=== PATIENT | male | born 1950 | race Caucasian/White ===

== ENCOUNTER 2018-05-13 12:25 | Emergency (ER) | payer MEDICAID ==
[~2018-05-13] VITALS: Ht 167.6 cm; Wt 70.5 kg
[~2018-05-13 12:25] MED LIST: TRAM50TA2 PO
[2018-05-13 12:31] VITALS: BP 137/91; PULSE 108; RESP 18; Ht 167.6 cm; Wt 70.5 kg
[2018-05-13] MEDS ORDERED: KETOROLAC 60 MG INJ IM STA (14:18)
[2018-05-13] MEDS ORDERED: HYDROCODONE/APAP (5/325) TAB PO ONE (14:30)
--- NOTE | 2018-05-13 14:41 | ERD ---
ER Documentation Chief Complaint Chief Complaint new onset left back/hip/knee x 3 days HPI This is a 68-year-old male with a history of chronic low back pain who presents ED with complaints of left knee pain times 4 days. Patient is also complaining of flareup of chronic low back pain. Patient states that he suffered a Workmen's Comp. injury many years ago and that is the cause of his low back pain. Patient denies any recent fall or injury. Admits to some painful range of motion. Admits to left knee pain aggravated with walking and bending. Denies fever, chills, tingling, numbness, sensation, decreased range of motion, history of IV drug abuse, saddle paresthesias, bowel/bladder incontinence. ROS All systems reviewed and are negative except as per history of present illness. Medications Home Meds Active Scripts Tramadol HCl (Tramadol HCl) 50 Mg Tablet, 50 MG PO Q4 PRN for PAIN, #20 TAB Prov:ELAYNE HANLEYLayo 06/28/15 Allergies Allergies: Coded Allergies: No Known Allergy (Unverified , 06/27/15) PMhx/Soc History of Surgery: Yes (surgery to left upper arm) Anesthesia Reaction: No Hx Neurological Disorder: No Hx Respiratory Disorders: No Hx Cardiac Disorders: No Hx Psychiatric Problems: No Hx Miscellaneous Medical Probl: No Hx Alcohol Use: No Hx Substance Use: Yes (MARIJUANA) Hx Tobacco Use: No Smoking Status: Current every day smoker FmHx Family History: No diabetes Physical Exam Vitals Vital Signs Date Temp Pulse Resp B/P (MAP) Pulse Ox O2 O2 Flow FiO2 Time Delivery Rate 05/13/18 98.9 108 18 137/91 98 12:31 (106) Physical Exam Physical Exam Vitals signs: Reviewed by me. General: Well developed, well nourished, in no acute distress. Patient is awake and alert. Head: Normocephalic, atraumatic. Eyes: Normal conjunctiva, Pupils PERRLA, EOM intact grossly ENT: Pharynx is clear, Moist mucous membranes, external ears, nose and mouth normal Neck: Supple, no masses, lymphadenopathy or JVD Respiratory: Clear to auscultation bilaterally with no wheezing, rhonchi, rales, no distress Cardiovascular: RRR, no murmurs, rubs, or gallops MSK: Deformity of right hand, no edema, no unilateral swelling, 5/5 strength Lower Extremity -left Skin: No laceration, mild swelling Compartments: Soft Motor: Full active range of motion hip/knee/ankle/foot Sensation: Intact to light touch FDWS/MF/LF/P surfaces. Bones: Mild tenderness palpation along anterior knee nontender pelvis//proximal tibia/ malleoli/foot Joints: No effusion or laxity Pulses/Perfusion: 2+ DP, Capillary refill < 2 seconds Back: No midline tenderness. No flank tenderness. No thoracic or lumbar midline tenderness, no step-off deformities, nontender to palpation in the paravertebral muscles in the lumbar spine, straight leg raise negative Neurologic: Alert and oriented, moving all extremities, normal speech, no focal weakness, no cerebellar signs. Normal mentation Skin: warm and dry, No rash Psych: Normal mood Results 24 hrs Current Medications Medications Dose Sig/Sharron Start Time Status Last (Trade) Ordered Route PRN Stop Time Admin Dose Reason Admin Ketorolac 60 mg ONCE STAT 05/13/18 DC 05/13/18 Tromethamine IM 14:18 05/13/18 14:32 (Toradol) 14:19 1 tab ONCE ONCE 05/13/18 DC Acetaminophen PO 14:30 05/13/18 / 14:30 Hydrocodone Bitart ([place] (5325)) Procedures/MDM EKG, MONITORS, & DIAGNOSTIC IMAGING: [place] [address] Radiology Main Line: [phone] DIAGNOSTIC IMAGING REPORT Patient: MIRYAM JOSE : 1950 Age: 68 Sex: M MR #: [id number] DOS: 05/13/18 [facility] Ordering MD: CONSTANZA ALLISON PA-C Location: [facility] Room/Bed: PROCEDURE: XR Hip. CLINICAL INDICATION: pain TECHNIQUE: AP and frog lateral views of the left hip were performed. COMPARISON: None. FINDINGS: No acute fracture or dislocation. Mild arthrosis with medial predominant joint space loss and small rim osteophytes. Soft tissues are unremarkable. IMPRESSION: No fracture or dislocation. Mild degenerative changes. RPTAT:AAJJ Lance Nuñez Physician Date Time Electronically viewed and signed by Lance Nuñez Physician on 05/13/2018 15:21 RF/ CC: CONSTANZA ALLISON PA-C [id number] [place] [address] Radiology Main Line: [phone] DIAGNOSTIC IMAGING REPORT Patient: MIRYAM JOSE : 1950 Age: 68 Sex: M MR #: [id number] DOS: 05/13/18 1443 Ordering MD: CONSTANZA ALLISON PA-C Location: [facility] Room/Bed: PROCEDURE: XR Lumbar Spine. CLINICAL INDICATION: pain TECHNIQUE: AP, lateral and cone-down lateral view of the lumbar spine were obtained. COMPARISON: No prior studies are available for comparison. FINDINGS: No evidence of acute fracture. Vertebral body heights are relatively well maintained. There is moderate to severe multilevel disc space narrowing, most pronounced from L3-S1 where there is associated vacuum phenomena and endplate osteophyte formation. Moderate facet arthropathy from L4-S1. Straightening of the normal lordosis without vertebral body subluxation. Soft tissues are unremarkable. IMPRESSION: Moderate to severe multilevel spondylosis, most pronounced in the lower lumbar spine. Straightening of the normal lordosis may be positional or related to muscle spasm. RPTAT:AAJJ Lance Nuñez, Physician Date Time Electronically viewed and signed by Lance Nuñez Physician on 05/13/2018 15:22 RF/ CC: CONSTANZA ALLISON PA-C [id number] [place] [address] Radiology Main Line: [phone] DIAGNOSTIC IMAGING REPORT Patient: MIRYAM JOSE : 1950 Age: 68 Sex: M [id number] DOS: 05/13/18 1418 Ordering MD: CONSTANZA ALLISON PA-C Location: [facility] Room/Bed: PROCEDURE: Left knee x-ray CLINICAL INDICATION: pain TECHNIQUE: AP, lateral and oblique views of the left knee were obtained. COMPARISON: None FINDINGS: No acute fracture detected. No dislocation. Mild arthrosis of the medial and patellofemoral compartments with joint space narrowing small marginal osteophytes. Large joint effusion. Mild soft tissue swelling. IMPRESSION: Large joint effusion mild soft tissue swelling without acute fracture detected. RPTAT:AAJJ Lance Nuñez Physician Date Time Electronically viewed and signed by Lance Nuñez Physician on 05/13/2018 15:20 RF/ CC: CONSTANZA ALLISON PA-C [id number] ER COURSE: The patient was given Toradol The medication was well tolerated and the patient reports improvement in symptoms. The patient was stable throughout ED course. I kept the patient and/or family informed of laboratory and diagnostic imaging results throughout the emergency room course. The patient was promptly evaluated and a treatment plan was devised based on H&P and other data. This plan was discussed with the patient who agreed and had no further questions or concerns prior to discharge. MEDICAL DECISION MAKING: This is a 68-year-old male with a history of chronic low back pain who presents ED with complaints of flareup of low back pain as well as left knee pain times 4 days. Of utmost concern to patient as his left knee pain. Patient is requesting x-ray. X-ray of left hip show some mild degenerative changes, x-ray of low back shows spondylosis but there is no evidence of fracture or dislocation, x-ray left knee shows a large joint effusion with some mild soft tissue swelling without any acute fracture detected. Patient advised follow-up with erp specialist regarding chronic low back pain and acute left knee pain. History and physical examination other data not consistent with emergent processes including but not limited to cauda equina syndrome, cord compression, infiltrative etiology, infectious etiology, epidural abscess, lumbar fracture, obstructive pyelonephritis, abdominal aortic aneurysm, knee fracture, dislocation, tendon rupture, ischemia, neurovascular injury, compartment syndrome, septic joint, avascular necrosis, osteomyelitis, necrotizing fasciitis, septic joint, septic arthritis, or other emergent conditions. Patient's vitals are stable and can be managed outpatient with close follow-up. Advised patient to follow-up with primary care in the next 48 hours. Return to ED with any worsening symptoms. DISPOSITION PLAN: We discussed follow up with the patient's primary care doctor within 24 to 48 hours. Patient counseled regarding my diagnostic impression and care plan. Prior to discharge all questions answered. Pt agrees with treatment plan and understands strict return precautions. Precautionary instructions provided including instructions to return to the ER if not improving or for any worsening or changing symptoms or concerns. SPECIALIST FOLLOW UP RECOMMENDED: ortho Patient has been advised to follow up with primary care in 1-2 days. Disclaimer: Inadvertent spelling and grammatical errors are likely due to EHR/dictation software use and do not reflect on the overall quality of patient care. Also, please note that the electronic time recorded on this note does not necessarily reflect the actual time of the patient encounter. Blood Pressure Assessment: Patient's blood pressure was elevated (>120/80) but appears stable without evidence of hypertension emergency or urgency. The patient was counseled about the risks of hypertension and urged to pursue outpatient monitoring and therapy within a week with their primary care physician. Departure Diagnosis: Primary Impression: Knee effusion, left Additional Impressions: Knee pain, acute Laterality: left Qualified Codes: M25.562 - Pain in left knee Back pain Back pain location: low back pain Chronicity: chronic Back pain laterality: bilateral Sciatica presence: without sciatica Qualified Codes: M54.5 - Low back pain; G89.29 - Other chronic pain Condition: Stable Patient Instructions: Back Pain (Acute Or Chronic), Causes of Lumbar (Low Back) Pain, Knee Effusion, Knee Pain, Uncertain Cause, R.I.C.E. Referrals: [facility] ([facility] Additional Instructions: Patient advised to return to the ED immediately for new or worsening symptoms. Patient advised to follow up with primary care provider in the next 24-48 hours. Patient verbalized understanding and agrees with treatment plan and course of action. If patient has no primary care they may follow up with one of the community clinics listed on the following page or one of the options listed below [facility] + [facility] [address] [place] [id number] or [facility] [address] [place] [address] or [facility] [address] [place] [address] CONSTANZA ALLISON PA-C May 13, 2018 14:41
[2018-05-13] MEDS ORDERED: HYDR-4011 PO (15:41)
[2018-05-13] MEDS ORDERED: NAPR-985 PO (15:41)
[2018-05-13] MEDS ORDERED: DICL100G37 TOP (15:41)
== END 2018-05-13 15:54 | disposition home or self-care (01) ==
LOC: FTE 12:25
DX: M25.462 Effusion, left knee (principal); M54.5 Low back pain; F17.210 Nicotine dependence, cigarettes, uncomplicated
CPT/HCPCS: 72100; 73510; 73562; 96372; J1885; Z7502